=== PATIENT | female | born 1975 | race Hispanic/Latino ===

== ENCOUNTER 2017-11-11 04:23 | Emergency (ER) | payer BC, OTHER ==
[2017-11-11 04:51] LABS: BASOPHILS % (AUTO) 0.7 % (0.0-5.0); EOSINOPHILS % (AUTO) 2.7 % (0.0-8.0); HEMATOCRIT 36.4 % (36-48); LYMPHOCYTES % (AUTO) 34.4 % (21.0-51.0); MEAN CORPUSCULAR HEMOGLOBIN 27.9 pg (27.0-33.0); MEAN CORPUSCULAR HGB CONC 32.9 g/dL (32.0-36.0); MEAN CORPUSCULAR VOLUME 84.6 fL (79-99); MONOCYTES % (AUTO) 8.7 % (3.0-13.0); NEUTROPHILS % (AUTO) 53.5 % (40.0-77.0); PLATELET COUNT (AUTO) 264 K/uL (130-400); RED CELL DISTRIBUTION WIDTH 20.6 % (11.0-15.5); WHITE BLOOD COUNT (AUTO) 5.6 K/uL (4.8-10.8)
[2017-11-11 05:01] LABS: CREATININE 0.7 mg/dL (0.5-1.5); POTASSIUM 3.6 mmol/L (3.5-5.1)
[2017-11-11 05:02] LABS: INR 0.92 (0.85-1.15); PARTIAL THROMBOPLASTIN TIME 26.5 SEC (26.3-35.5); PROTHROMBIN TIME 9.7 SEC (9.6-11.6)
[2017-11-11 05:05] LABS: ALBUMIN 3.2 g/dL (3.5-5.0); BILIRUBIN,TOTAL 0.1 mg/dL (0.2-1.0); TOTAL PROTEIN, SERUM 7.6 g/dL (6.0-8.3)
[2017-11-11] MEDS ORDERED: MAG HYDROX/AL HYDROX/SIMETH ES 30 ML SUSP UDCUP ONE (05:16)
[2017-11-11] MEDS ORDERED: LIDOCAINE HCL 2% VISCOUS 15 ML UDCUP ONE (05:16)
== END 2017-11-11 07:11 | disposition home or self-care (01) ==
LOC: EDH 04:23
DX: K21.9 Gastro-esophageal reflux disease without esophagitis (principal); K29.70 Gastritis, unspecified, without bleeding; R07.89 Other chest pain; K80.20 Calculus of gallbladder without cholecystitis without obstruction
CPT/HCPCS: 36415; 71045; 76700; 80053; 85025; 85610; 85730; 93005

== ENCOUNTER 2022-06-27 19:10 | Emergency (ER) | payer OTHER ==
[~2022-06-27] VITALS: Ht 154.9 cm; Wt 68.0 kg
[2022-06-27 19:39] VITALS: BP 124/45
[2022-06-27] MEDS ORDERED: IBUPROFEN 600 MG TABLET PO ONE (23:00)
[2022-06-27] MEDS ORDERED: CYCLOBENZAPRINE HCL 10 MG TABLET PO ONE (23:00)
[2022-06-27] MEDS ORDERED: CYCLOBENZAPRINE HCL 10 MG TABLET ONE (23:04)
[2022-06-27] MEDS ORDERED: IBUPROFEN 600 MG TABLET ONE (23:04)
== END 2022-06-27 23:52 | disposition home or self-care (01) ==
LOC: EDH 19:10
DX: S83.92XA Sprain of unspecified site of left knee, initial encounter (principal); Z79.1 Long term (current) use of non-steroidal anti-inflammatories (NSAID); X58.XXXA Exposure to other specified factors, initial encounter; Y93.89 Activity, other specified; Y92.89 Other specified places as the place of occurrence of the external cause; Y99.8 Other external cause status
CPT/HCPCS: 73562